=== PATIENT | male | born 1985 | race American Indian/Alaskan Native ===

== ENCOUNTER 2017-03-20 10:16 | Outpatient (CLI) | payer BC ==
--- NOTE | 2017-03-20 10:50 | XRay Report ---
CHEST 2 VIEWS INDICATION: Shortness of breath. COMPARISON: None similar at this institution. FINDINGS: PA and lateral chest radiographs suggest mild cardiomegaly and prominent lung markings centrally. Slight fluid or thickening along the fissures as well. Subtle posterior costophrenic angle blunting. Intact bones. CONCLUSION: Mild cardiomegaly and slight pulmonary vascular congestion suspected radiographically, as described. Please correlate. Thank you for the opportunity to participate in this patient's care.
== END 2017-03-20 10:17 | disposition home or self-care (01) ==
LOC: XRAY 10:16
PROVIDERS: ATTEND Internal Medicine
DX: I51.7 Cardiomegaly (principal)
CPT/HCPCS: 71020

== ENCOUNTER 2017-03-31 08:56 | Outpatient (CLI) | payer BC ==
[2017-03-31] MEDS ORDERED: PROVENTIL IH ONE (09:22)
== END 2017-03-31 08:57 | disposition home or self-care (01) ==
LOC: PF 08:56
PROVIDERS: ATTEND Internal Medicine
DX: R06.02 Shortness of breath (principal)
CPT/HCPCS: 94060; 94640; 94726; 94729